=== PATIENT | female | born 1975 | race Caucasian/White ===

== ENCOUNTER 2020-05-20 13:32 | Outpatient (RCR) | payer OTHER, SELFPAY ==
--- NOTE | 2020-05-20 11:41 | PTOPEVAL ---
Thank you for referring Michelle Britt to [facility].? The patient is scheduled to be seen for therapy? __2__x/week for 8 visits. Please review, sign, date and return this plan of care HIRO. I agree with and certify that the following plan of care is medically necessary. Referring Physician Date Admitting Provider: Attending Provider: Ovidio Bear Referring Provider: *PT Outpatient Evaluation Start: 05/20/20 11:08 Freq: Status: Active Protocol: Document 05/20/20 11:08 ANEUDY (Rec: 05/20/20 11:41 ANEUDY [email or web address]) Therapy Assessment Status Assessment Status Assessment Status Evaluation Evaluation Information Problem Diagnosis left shoulder Onset 04/22/20 Subjective Information Pt. reports that she began Query Text:As Reported By Patient/ noting increase in shoulder Family pain over the past 2 months. She describes pain down the back side of the left shoulder and can shoot down the arm. She reports that she does see a chiropractor for her neck. she reports that sleeping on the left shoulder is difficult due to pain. She notes pain increased pain with plank exercises, driving and reaching out away from her body will increase. She reports her goal for therapy is to decrease her pain. Prior Level of Function Activity Level (Last 3 Months) Occupation dental hygenist Hand Dominance Right Activity of Daily Living Ability Independent Indoor/Home Mobility Independent Community Mobility Independent Stairs Ability Independent Functional Cognition (Planning, Shopping Independent , Taking Medications) Cooking Yes Cleaning Yes Laundry Yes Shopping Yes Driving Yes Pain Assessment Pain Scale Pain Scale Used Numeric (1 - 10) Self Report Pain Assessment Left Shoulder(s) Reported Pain Level 4 Pain Description Aching,Dull Pain Frequency Intermittent Lowest Pain Intensity 0 Greatest Pain Intensity 8 Pain Score Pain Score 4: Self Report Interventions Used Interventions Used By Clinicians Electrical Stimulation, Exercise,Heat Upper Extremity
--- NOTE | 2020-07-25 13:37 | PCPTNOTE ---
Mrs. Britt attended a total of 4 treatment sessions from 05/20/20 to 06/12/20. She has failed to return to the clinic and will be discharged from our care at this time.
== END 2020-06-12 09:44 | disposition home or self-care (01) ==
LOC: CHSPT 13:32
DX: M25.512 Pain in left shoulder (principal)
CPT/HCPCS: 97014; 97110; 97161; G0283

== ENCOUNTER → 2022-07-03 10:26 | Outpatient (CLI) | payer OTHER, SELFPAY ==
--- NOTE | ~2022-07-03 | US_ITS ---
Pelvic ultrasound. Clinical History: Leiomyoma of uterus Technique: Realtime transabdominal scanning of the pelvis was performed. Color flow Doppler and Doppl er spectral analysis were performed. Findings: The uterus is anteverted, and measures 13.8 x 4.8 x 8.1 cm. The endometrial stripe has a t hickness of 9 mm. Intramural fibroid measures 7.0 x 6.0 cm. Additional fundal fibroid measures 3.4 cm in diameter. Several additional smaller fibroids are also present.. The right ovary measures 2.0 x 1.3 x 2.4 cm. No significant right ovarian or adnexal mass is seen. The left ovary measures 3.0 x 1.8 x 2.5 cm. No significant left ovarian or adnexal mass is seen. There is no evidence of free fluid in the cul de sac. Impression: Multiple uterine fibroids, as above. Reviewed, dictated and finalized at location . Impression: Multiple uterine fibroids, as above.
== END ==
PROVIDERS: PCP Nurse Practitioner; Visit Provider Nurse Practitioner
DX: D25.9 Leiomyoma of uterus, unspecified (principal)
CPT/HCPCS: 76856

== ENCOUNTER → 2023-03-12 11:23 | Outpatient (CLI) | payer OTHER, SELFPAY ==
--- NOTE | ~2023-03-12 | US_ITS ---
EXAMINATION: US pelvic complete DATE: INDICATION: FIBROIDS TECHNIQUE: Multiple transabdominal and endovaginal sonographic images of the pelvis were obtained. COMPARISON: 07/03/2022 FINDINGS: Uterus: 12.7 x 7.2 x 8.4 cm. Anteverted. Multiple uterine fibroids are present, the largest measuring up to 7.0 cm. Endometrial complex measures 6 mm. Right Ovary: 2.0 x 1.2 x 1.9 cm. Vascular flow is present. No adnexal mass. Left Ovary: 2.2 x 1.2 x 2.4 cm. Vascular flow is present. No adnexal mass. There is no free fluid in the pelvis. IMPRESSION: Multiple uterine fibroids, measuring up to 7.0 cm. Reviewed, dictated and finalized at location K. LATORY SERVICES CONSULTANT
== END ==
PROVIDERS: PCP Nurse Practitioner; Visit Provider Nurse Practitioner
DX: D25.9 Leiomyoma of uterus, unspecified (principal); N85.2 Hypertrophy of uterus
CPT/HCPCS: 76856

== ENCOUNTER → 2023-03-12 12:37 | Outpatient (CLI) | payer OTHER, SELFPAY ==
--- NOTE | ~2023-03-12 | XR_ITS ---
XR lumbar spine min 4V DATE: 03/12/2023 13:49 INDICATION: Lumbar radiculopathy TECHNIQUE: AP, lateral, coned lateral lumbosacral, bilateral oblique views COMPARISON: None FINDINGS: Normal alignment of the lumbar spine. The included lower thoracic and lumbar pedicles are intact. No fracture or bone destruction. No spondylolysis or spondylolisthesis. There is moderate loss of interspace height at L5-S1. Lumbar interspaces are relatively preserved. The sacroiliac joints are intact. IMPRESSION: Moderate loss of interspace height at L5-S1 Reviewed, dictated and finalized at location B. ICAL THERAPIST CLINIC DIRECTOR
--- NOTE | ~2023-03-12 | XR_ITS ---
XR hip RT 2V w AP pelvis DATE: 03/12/2023 13:49 INDICATION: Right hip pain. Lumbar radiculopathy. TECHNIQUE: AP pelvis. AP and lateral views of right hip. COMPARISON: April 03, 2016 pelvis FINDINGS: No pelvic fracture or bone destruction is detected. Normal alignment at the pubic symphysis and sacroiliac joints. The hip joint spaces are symmetric and well preserved. No fracture, dislocation, avascular necrosis or bone destruction of the right hip. IMPRESSION: Negative Reviewed, dictated and finalized at location B. ILEVER CRANE OPERATOR IMPRESSION: Negative
== END ==
PROVIDERS: PCP Physician Assistant; Visit Provider Physician Assistant
DX: R29.890 Loss of height (principal)
CPT/HCPCS: 72110; 73502

== ENCOUNTER 2023-04-05 11:04 | Outpatient (RCR) | payer OTHER, SELFPAY ==
--- NOTE | 2023-04-05 14:36 | OPREHPOC ---
Outpatient Therapy Plan of Care This is a Multidisciplinary Plan of Care that may contain components documented by all disciplines (PT, OT, and ST.) PT Problem 1 PT Problem #1 Knowledge Deficit PT Goal 1 Goal patient to demonstrate independence with HEP Target Visit 5 PT Problem 2 PT Problem #2 Pain PT Goal 1 Goal Patient to report highest pain at 2/10 Target Visit 10 PT Problem 3 PT Problem #3 Impaired Strength PT Goal 1 Goal Patient to demonstrate 5/5 R hip strength to return to house hold chores at PLOF with no increase in R hip pain Target Visit 10 PT Problem 4 PT Problem #4 Impaired Functional Mobil PT Goal 1 Goal 1. Patient to report ability to sleep on her R side with no increase in pain 2. Patient to report ability to return to house hold chores with no R hip pain. Target Visit 10
--- NOTE | 2023-04-05 14:36 | PTOPEVAL1 ---
Assessment and note entered by Deirdre Cifuentes DPT Evaluation Information Assessment Status Evaluation Diagnosis R hip pain Onset 03/15/23 Subjective Information Patient reports she has had R hip pain for the last 2 years. Over the last 3 months pain has become more constant. She reports pain is worse with sleeping on her R side. She reports she has tried to do exercises including biking to improve hip pain. She has had negative hip x-rays. She has a history of sciatic pain but reports this feels different. She reports she thinks she may has over stretched recently. Patient works as a dental hygienist. Reported Pain Level Pain Score 5: Self Report Assessment PT Clinical Summary Mrs. Britt is a 47 year old female who presents to PT with R hip pain. Patient demonstrates decreased R LE flexibility, decreased R hip pain and tenderness to the R greater trochanter indicating possible R hip bursitis. Patient has difficulty with sleeping and completing house hold tasks. She would benefit from skilled PT to address impairments and return to PLOF. Plan of Care Interventions Electrical Stimulation,Gait Training,Hot Pack/Cold Pack,Manual Therapy,Mechanical Traction,Neuro Re- education,Patient/Caregiver Educati,Therapeutic Activities,Therapeutic Exercise PT Services Indicated Yes Treatment Frequency and 2x weekly for 10 visits Duration These treatments will address the objective and functional deficits as defined above. The patient will be advanced safely and appropriately in order for the patient to progress towards his/her prior level of function. Additional exercises will be introduced and as well as a comprehensive home exercise program upon discharge, if needed, ?to ensure carryover of functional gains achieved in the clinic. This treatment plan has been reviewed and agreement upon by the patient.
--- NOTE | 2023-05-06 07:20 | PCPTNOTE ---
patient cancelled due to OOT
--- NOTE | 2023-07-08 09:32 | PCPTNOTE ---
patient self discharged due to improvements and independence in HEP
== END 2023-04-30 20:00 | disposition home or self-care (01) ==
LOC: CHSPT 11:04
PROVIDERS: Visit Provider Family Medicine
DX: M25.559 Pain in unspecified hip (principal)
CPT/HCPCS: 97014; 97110; 97140; 97161; G0283